=== PATIENT | female | born 1950 ===

== ENCOUNTER 2020-07-07 13:16 | Outpatient (CLI) | payer OTHER | END 2020-07-07 14:33 | disposition home or self-care (01) | LOC: OFIC 805 13:16 | PROVIDERS: ATTEND Otolaryngology Otology & Neurotology | DX: J31.0 Chronic rhinitis (principal); J34.89 Other specified disorders of nose and nasal sinuses; H90.42 Sensorineural hearing loss, unilateral, left ear, with unrestricted hearing on the contralateral side; H61.23 Impacted cerumen, bilateral ==

== ENCOUNTER → 2020-11-18 | Outpatient (CLI) | payer OTHER | END | disposition home or self-care (01) | LOC: TOM 13:14 | PROVIDERS: ATTEND Otolaryngology Otology & Neurotology | DX: J32.0 Chronic maxillary sinusitis (principal); J31.0 Chronic rhinitis ==

== ENCOUNTER 2021-06-05 23:39 | Emergency (ER) | payer OTHER ==
[~2021-06-05] VITALS: Ht 160 cm; Wt 111.1 kg
[2021-06-05] MEDS ORDERED: FENOFIBRATE150 MG (23:57)
[2021-06-05] MEDS ORDERED: TOPROL XL100 M1 (23:58)
[2021-06-05] MEDS ORDERED: EZALLOR SPRINKL20 MG (23:58)
[2021-06-06] MEDS ORDERED: CIPRO500 MG PO (01:00)
== END 2021-06-06 01:51 | disposition home or self-care (01) ==
LOC: ER 23:39
DX: S81.851A Open bite, right lower leg, initial encounter (principal); W54.0XXA Bitten by dog, initial encounter; Y93.9 Activity, unspecified; Y92.89 Other specified places as the place of occurrence of the external cause; Y99.9 Unspecified external cause status; I10 Essential (primary) hypertension